=== PATIENT | male | born 1940 | race Caucasian/White ===

== ENCOUNTER 2016-03-01 15:48 | Inpatient (IN) | payer OTHER ==
[~2016-03-01] VITALS: Ht 170.2 cm; Wt 68.9 kg
[2016-03-01 17:10] LABS: Basophils # (auto) 0.1 uL; Basophils % (auto) 1.3 % (0.0-2.0); Eosinophils # (auto) 0.3 uL; Eosinophils % (auto) 3.4 % (0.0-7.0); Hematocrit 51.6 % (41.0-53.0); Hemoglobin 16.8 g/dL (13.5-17.5); Lymphocytes # (auto) 2.2 uL; Lymphocytes % (auto) 24.4 % (10.0-50.0); Mean Corpuscular Hemoglobin 30.6 pg (28.0-32.0); Mean Corpuscular Hgb Conc. 32.5 g/dL (32.0-36.0); Mean Corpuscular Volume 94.1 fL (80.0-100.0); Mean Platelet Volume 7.2 fL (7.4-10.4); Monocytes # (auto) 0.7 uL; Monocytes % (auto) 7.7 % (0.0-12.0); Neutrophils # (auto) 5.6 uL; Neutrophils % (auto) 63.2 % (37.0-80.0); Platelet Count (auto) 364 10^3/uL (140-450); Red Cell Distribution Width 14.4 % (11.6-16.0); White Blood Cell 8.8 10^3/uL (4.4-10.8)
[2016-03-01 17:19] LABS: Albumin 3.7 g/dL (3.4-5.0); BUN/Creatinine Ratio 12.4; Calcium 8.8 mg/dL (8.5-10.1); Potassium 4.2 mmol/L (3.5-5.1)
[2016-03-01 17:30] LABS: Bilirubin, Total 0.6 mg/dL (0.2-1.0); Total Protein 7.5 g/dL (6.4-8.2)
[2016-03-01] MEDS ORDERED: LEVOFLOXACIN 500MG 100 ML IV ONE (22:00)
[2016-03-01] MEDS ORDERED: IPRATROPIUM BROM 0.5 MG/2.5ML INH SOL NEB ONE (22:00)
[2016-03-01] MEDS ORDERED: ALBUTEROL SULF 2.5 MG/0.5ML(0.5%) NEB SOLN NEB ONE (22:00)
[2016-03-01] MEDS ORDERED: SODIUM CHLORIDE 0.9% 1,000 ML IV ONE (22:00)
[2016-03-01 22:34] LABS: INR 1.09 (0.9-1.15); Prothrombin Time 11.2 sec (9.37-12.3)
[2016-03-01 22:48] LABS: B-Type Natriuretic Peptide 109.02 pg/mL (0-100)
[2016-03-02] MEDS ORDERED: LORazepam 2MG/ML-1ML VIAL IV ONE (00:45)
[2016-03-02] MEDS ORDERED: NITROGLYCERIN 0.4 MG SL TAB SL PRN (00:45)
[2016-03-02] MEDS ORDERED: LORazepam 2MG/ML-1ML VIAL IV PRN (00:45)
[2016-03-02] MEDS ORDERED: LACTULOSE 20Gm/30ML SOLN PO PRN (00:45)
[2016-03-02] MEDS ORDERED: ONDANSETRON HCL 4 MG/2 ML VIAL IV PRN (00:45)
[2016-03-02] MEDS ORDERED: IOHEXOL 350 MG/ML 100ML IJ ONE (00:45)
[2016-03-02] MEDS ORDERED: ENOXAPARIN SOD 80 MG/0.8ML SYRINGE SC ONE (00:45)
[2016-03-02] MEDS ORDERED: MORPHINE SULF INJ 2 MG/ML SYRINGE 1ML IV PRN ×2 (00:45)
[2016-03-02] MEDS ORDERED: methylPREDNISolone SOD SUCC 125 MG/2 ML VL IV ONE (00:45)
[2016-03-02 01:44] VITALS: BP 123/88
[2016-03-02 01:56] VITALS: BP 123/88
[2016-03-02] MEDS: ALBUTEROL SULF 2.5 MG/0.5ML(0.5%) NEB SOLN NEB SCH ×4 (02:34→14:01)
[2016-03-02] MEDS: IPRATROPIUM BROM 0.5 MG/2.5ML INH SOL NEB SCH ×4 (02:34→14:01)
[2016-03-02 03:21] VITALS: BP 123/88
[2016-03-02] MEDS ORDERED: ATOR20TA50 PO (03:40)
[2016-03-02] MEDS ORDERED: FURO20TA3 PO (03:40)
[2016-03-02] MEDS ORDERED: ALBU1.257 NEB (03:40)
[2016-03-02] MEDS ORDERED: BUPR150T6 PO (03:40)
[2016-03-02] MEDS ORDERED: FLUT100I IN (03:40)
[2016-03-02] MEDS ORDERED: POTA10TA51 PO (03:40)
[2016-03-02 05:01] VITALS: BP 120/80
[2016-03-02] MEDS: SODIUM CHLOR 0.9% PF (SALINE LOCK) 10ML VIAL IV SCH ×2 (06:00→10:21)
[2016-03-02 09:00] VITALS: BP 141/93
[2016-03-02] MEDS ORDERED: buPROPion HCL 100 MG TAB PO SCH (10:00)
[2016-03-02] MEDS ORDERED: POTASSIUM CHLORIDE 8 MEQ TAB PO SCH (10:00)
[2016-03-02] MEDS ORDERED: FUROSEMIDE 20 MG/2 ML VIAL IV SCH (10:00)
[2016-03-02] MEDS ORDERED: ENOXAPARIN SOD 80 MG/0.8ML SYRINGE SC SCH (10:00)
[2016-03-02] MEDS ORDERED: METOPROLOL TARTRATE 25 MG TAB PO SCH (10:00)
[2016-03-02] MEDS ORDERED: PANTOPRAZOLE SODIUM 40 MG/10 ML VIAL IV SCH (10:00)
[2016-03-02] MEDS ORDERED: methylPREDNISolone SOD SUCC 125 MG/2 ML VL IV SCH (10:00)
[2016-03-02 13:00] VITALS: BP 121/82
[2016-03-02] MEDS ORDERED: guaiFENesin-DEXTROMETHORPHAN 5ML SYR PO PRN (13:30)
[2016-03-02] MEDS ORDERED: LEVO500T3 PO (13:45)
[2016-03-02] MEDS ORDERED: METH4PAK PO (13:45)
[2016-03-02] MEDS ORDERED: LEVOFLOXACIN 500MG 100 ML IV SCH (21:00)
[2016-03-02] MEDS ORDERED: methylPREDNISolone SOD SUCC 40 MG/ML VL IV SCH (22:00)
[2016-03-02] MEDS ORDERED: ATORVASTATIN 20 MG TAB PO SCH (22:00)
== END 2016-03-02 14:42 | disposition left against medical advice (07) | DRG 191 ==
LOC: ER 15:51 → TELE 15:52 → TELE-EAST 03-02 01:47
PROVIDERS: ADMIT Family Medicine; ATTEND Family Medicine
DX: J44.0 Chronic obstructive pulmonary disease with (acute) lower respiratory infection (principal); E87.1 Hypo-osmolality and hyponatremia; I10 Essential (primary) hypertension; J44.1 Chronic obstructive pulmonary disease with (acute) exacerbation; F41.9 Anxiety disorder, unspecified; F17.210 Nicotine dependence, cigarettes, uncomplicated; J20.9 Acute bronchitis, unspecified; F32.9 Major depressive disorder, single episode, unspecified; E78.5 Hyperlipidemia, unspecified
CPT/HCPCS: 36415; 71020; 71275; 80053; 83880; 84484; 85025; 85049; 85379; 85610; 85730; 87040; 87400; 93005; 93970; 94640; 96365; 96372; 96375; C9113; J1956

== ENCOUNTER 2018-10-23 10:24 | Emergency (ER) | payer OTHER ==
[~2018-10-23] VITALS: Ht 165.1 cm; Wt 81.6 kg
[~2018-10-23 10:24] MED LIST: ALBU1.257 NEB; ATOR20TA50 PO; BUPR150T6 PO; DOCU100C8 PO; FLUT100I IN; FURO20TA3 PO; LEVO500T21 PO; POTA10TA51 PO
[2018-10-23 11:51] LABS: Basophils # (auto) 0.1 uL; Basophils % (auto) 0.5 % (0.0-2.0); Eosinophils # (auto) 0.2 uL; Hematocrit 48.3 % (41.0-53.0); Hemoglobin 16.5 g/dL (13.5-17.5); Lymphocytes # (auto) 1.2 uL; Mean Corpuscular Hemoglobin 31.6 pg (28.0-32.0); Mean Corpuscular Hgb Conc. 34.2 g/dL (32.0-36.0); Mean Corpuscular Volume 92.4 fL (80.0-100.0); Monocytes # (auto) 0.6 uL; Monocytes % (auto) 5.6 % (0.0-12.0); Neutrophils # (auto) 9.2 uL; Neutrophils % (auto) 80.9 % (37.0-80.0); Nucleated Red Blood Cells % 0.1 %; Platelet Count (auto) 344 10^3/uL (140-450); Red Blood Cells 5.23 10^6/uL (4.5-5.90); Red Cell Distribution Width 14.3 % (11.8-14.3); White Blood Cell 11.3 10^3/uL (4.4-10.8)
[2018-10-23 12:14] LABS: Albumin 3.9 g/dL (3.4-5.0); Anion Gap 10 (5-15); Blood Urea Nitrogen 14 mg/dL (7-18); Calcium 9.4 mg/dL (8.5-10.1); Carbon Dioxide 27 mmol/L (21-32); Chloride 101 mmol/L (98-107); Glucose 95 mg/dL (74-106); Magnesium 2.6 mg/dL (1.6-2.6); Potassium 3.5 mmol/L (3.5-5.1); Sodium 138 mmol/L (136-145)
[2018-10-23 12:20] LABS: Alanine Aminotransferase 17 U/L (16-61); Alkaline Phosphatase 84 U/L (45-117); Aspartate Aminotransferase 18 U/L (15-37); GFR African American 85 mL/min; GFR Non-African American 70 mL/min
[2018-10-23 18:57] VITALS: BP 110/79
== END 2018-10-23 19:09 | disposition home or self-care (01) ==
LOC: ER 10:24
DX: R07.89 Other chest pain (principal); F41.9 Anxiety disorder, unspecified; J44.9 Chronic obstructive pulmonary disease, unspecified; F32.9 Major depressive disorder, single episode, unspecified; E78.5 Hyperlipidemia, unspecified; I10 Essential (primary) hypertension; Z87.891 Personal history of nicotine dependence; Z88.0 Allergy status to penicillin; Z79.899 Other long term (current) drug therapy
CPT/HCPCS: 36415; 71045; 80053; 83735; 83880; 84484; 85025; 93005

== ENCOUNTER 2021-05-22 13:36 | Inpatient (IN) | payer OTHER ==
[~2021-05-22] VITALS: Ht 170.2 cm; Wt 66.5 kg
[~2021-05-22 13:36] MED LIST changes: +BUPR150T18 PO; -BUPR150T6 PO; +DOCU100C10 PO; -DOCU100C8 PO; -LEVO500T21 PO; +LEVO500T31 PO
[2021-05-22] MEDS ORDERED: methylPREDNISolone SOD SUCC 125 MG/2 ML VL IV ONE (14:15)
[2021-05-22 14:56] LABS: Basophils # (auto) 0 10 ^3/uL (0-0.2); Basophils % (auto) 0.2 % (0.0-2.0); Eosinophils # (auto) 0.1 10 ^3/uL (0-0.8); Eosinophils % (auto) 0.3 % (0.0-7.0); Hematocrit 39.5 % (41.0-53.0); Hemoglobin 13.2 g/dL (13.5-17.5); Lymphocytes # (auto) 0.3 10 ^3/uL (0.4-5.4); Lymphocytes % (auto) 1.6 % (10.0-50.0); Mean Corpuscular Hemoglobin 29.3 pg (28.0-32.0); Mean Corpuscular Hgb Conc. 33.4 g/dL (32.0-36.0); Mean Corpuscular Volume 87.6 fL (80.0-100.0); Monocytes # (auto) 0.7 10 ^3/uL (0-1.3); Monocytes % (auto) 3.4 % (0.0-12.0); Neutrophils # (auto) 18.7 10 ^3/uL (1.6-8.6); Neutrophils % (auto) 94.5 % (37.0-80.0); Nucleated Red Blood Cells % 0.1 %; Red Blood Cells 4.51 10^6/uL (4.5-5.90); Red Cell Distribution Width 14.3 % (11.8-14.3); White Blood Cell 19.7 10^3/uL (4.4-10.8)
[2021-05-22 15:19] LABS: Albumin 2.6 g/dL (3.4-5.0)
[2021-05-22 15:21] LABS: BUN/Creatinine Ratio 17.6
[2021-05-22 15:26] LABS: Total Protein 7.6 g/dL (6.4-8.2)
[2021-05-22] MEDS ORDERED: IOHEXOL 350 MG/ML 100ML IJ ONE (16:06)
[2021-05-22] MEDS ORDERED: levoFLOXacin 500MG 100 ML IV ONE (17:00)
[2021-05-22] MEDS ORDERED: MORPHINE SULFATE INJECTION 2 MG/ML SYRG IV ONE (18:30)
[2021-05-22] MEDS ORDERED: IPRATROPIUM BROM 0.5 MG/2.5ML INH SOL NEB PRN (21:00)
[2021-05-22] MEDS ORDERED: ALBUTEROL SULF 2.5 MG/0.5ML(0.5%) NEB SOLN NEB PRN (21:00)
[2021-05-22] MEDS ORDERED: NITROGLYCERIN 0.4 MG SL TAB SL PRN (21:00)
[2021-05-22] MEDS ORDERED: ONDANSETRON HCL 4 MG/2 ML VIAL IV PRN (21:00)
[2021-05-22] MEDS ORDERED: HYDROcodone-ACET 5/325MG TAB PO PRN (21:00)
[2021-05-22] MEDS ORDERED: TEMAZEPAM 15 MG CAP PO PRN (21:00)
[2021-05-22] MEDS ORDERED: ACETAMINOPHEN 325 MG TAB PO PRN (21:00)
[2021-05-22] MEDS ORDERED: MORPHINE SULFATE INJECTION 2 MG/ML SYRG IV PRN (21:00)
[2021-05-22] MEDS: METOPROLOL TARTRATE 25 MG TAB PO SCH (22:00)
[2021-05-22 22:12] VITALS: BP 102/69
[2021-05-22] MEDS: ATORVASTATIN 20 MG TAB PO SCH (22:20)
[2021-05-22] MEDS: methylPREDNISolone SOD SUCC 40 MG/ML VL IV SCH (22:20)
[2021-05-22 23:32] LABS: Urine Bacteria FEW /hpf (None Seen); Urine Blood TRACE /uL (Negative); Urine Mucus FEW (None Seen); Urine WBC 1 /hpf (0 - 3)
[2021-05-22 23:35] LABS: Urine Specific Gravity > 1.055 (1.001-1.035)
[2021-05-23] MEDS ORDERED: LORA0.5T20 PO (04:28)
[2021-05-23 05:00] VITALS: BP 102/70
[2021-05-23 05:45] LABS: Basophils # (auto) 0 10 ^3/uL (0-0.2); Eosinophils # (auto) 0 10 ^3/uL (0-0.8); Hematocrit 35.7 % (41.0-53.0); Hemoglobin 12.1 g/dL (13.5-17.5); Lymphocytes # (auto) 0.6 10 ^3/uL (0.4-5.4); Mean Corpuscular Hemoglobin 29.6 pg (28.0-32.0); Mean Corpuscular Hgb Conc. 33.8 g/dL (32.0-36.0); Mean Corpuscular Volume 87.5 fL (80.0-100.0); Monocytes # (auto) 0.4 10 ^3/uL (0-1.3); Monocytes % (auto) 2.1 % (0.0-12.0); Neutrophils # (auto) 18.8 10 ^3/uL (1.6-8.6); Neutrophils % (auto) 94.9 % (37.0-80.0); Red Blood Cells 4.09 10^6/uL (4.5-5.90); Red Cell Distribution Width 14.6 % (11.8-14.3); White Blood Cell 19.8 10^3/uL (4.4-10.8)
[2021-05-23 05:59] LABS: Albumin 2.2 g/dL (3.4-5.0); BUN/Creatinine Ratio 23.5; Calcium 8.9 mg/dL (8.5-10.1); Potassium 4.3 mmol/L (3.5-5.1)
[2021-05-23 06:01] LABS: Bilirubin, Total 0.6 mg/dL (0.2-1.0); Total Protein 6.9 g/dL (6.4-8.2)
[2021-05-23 09:00] VITALS: BP 97/61
[2021-05-23] MEDS: methylPREDNISolone SOD SUCC 40 MG/ML VL IV SCH ×2 (09:54→18:22)
[2021-05-23] MEDS: PANTOPRAZOLE 40 MG TAB PO SCH (09:55)
[2021-05-23] MEDS: buPROPion HCL 75 MG TAB PO SCH (09:55)
[2021-05-23] MEDS: ENOXAPARIN SOD 40 MG/0.4 ML SYRINGE SC SCH (09:55)
[2021-05-23] MEDS: METOPROLOL TARTRATE 25 MG TAB PO SCH ×2 (09:55→22:00)
[2021-05-23] MEDS ORDERED: FUROSEMIDE 40 MG TAB PO SCH (10:00)
[2021-05-23] MEDS ORDERED: ASPirin 81 mg TAB PO SCH (10:00)
[2021-05-23] MEDS ORDERED: GENTAMICIN SULF 0.3% OPTH(EYE) OINT 3.5GM EACHEYE ONE (12:30)
[2021-05-23] MEDS: ALBUTEROL SULF 2.5 MG/0.5ML(0.5%) NEB SOLN NEB SCH ×2 (12:49→19:48)
[2021-05-23] MEDS: IPRATROPIUM BROM 0.5 MG/2.5ML INH SOL NEB SCH ×2 (12:49→19:49)
[2021-05-23 13:00] VITALS: BP_SYST 102; BP_SYST 105; BP_SYST 98; BP_DIAS 66; BP_DIAS 70; BP_DIAS 78
[2021-05-23] MEDS: IBUPROFEN 400 MG TAB PO SCH ×2 (13:37→22:56)
[2021-05-23] MEDS: ALPRAZolam 0.25 MG TAB PO PRN (13:37)
[2021-05-23 17:00] VITALS: BP 90/54
[2021-05-23] MEDS ORDERED: levoFLOXacin 500MG 100 ML IV ONE (18:00)
[2021-05-23] MEDS: FUROSEMIDE 20 MG/2 ML VIAL IV SCH (18:15)
[2021-05-23 19:35] VITALS: BP 98/65
[2021-05-23 21:55] VITALS: BP 98/65
[2021-05-23] MEDS: GENTAMICIN SULF 0.3% OPTH(EYE) OINT 3.5GM EACHEYE SCH (22:53)
[2021-05-23] MEDS: POTASSIUM CHL 10 Meq TABLET PO SCH (22:54)
[2021-05-23] MEDS: ATORVASTATIN 20 MG TAB PO SCH (22:54)
[2021-05-24] MEDS: ALBUTEROL SULF 2.5 MG/0.5ML(0.5%) NEB SOLN NEB SCH ×4 (00:05→18:27)
[2021-05-24] MEDS: IPRATROPIUM BROM 0.5 MG/2.5ML INH SOL NEB SCH ×4 (00:05→18:27)
[2021-05-24] MEDS: methylPREDNISolone SOD SUCC 40 MG/ML VL IV SCH ×2 (01:30→10:10)
[2021-05-24 04:55] VITALS: BP 101/62
[2021-05-24 05:22] LABS: Basophils # (auto) 0 10 ^3/uL (0-0.2); Basophils % (auto) 0.1 % (0.0-2.0); Eosinophils # (auto) 0 10 ^3/uL (0-0.8); Hematocrit 32.8 % (41.0-53.0); Hemoglobin 11.3 g/dL (13.5-17.5); Lymphocytes # (auto) 0.4 10 ^3/uL (0.4-5.4); Lymphocytes % (auto) 2.4 % (10.0-50.0); Mean Corpuscular Hemoglobin 29.9 pg (28.0-32.0); Mean Corpuscular Hgb Conc. 34.4 g/dL (32.0-36.0); Mean Corpuscular Volume 86.9 fL (80.0-100.0); Monocytes # (auto) 0.4 10 ^3/uL (0-1.3); Monocytes % (auto) 2.4 % (0.0-12.0); Neutrophils # (auto) 17.6 10 ^3/uL (1.6-8.6); Neutrophils % (auto) 95.1 % (37.0-80.0); Red Blood Cells 3.77 10^6/uL (4.5-5.90); Red Cell Distribution Width 14.4 % (11.8-14.3); White Blood Cell 18.5 10^3/uL (4.4-10.8)
[2021-05-24 05:35] LABS: Potassium 4.2 mmol/L (3.5-5.1)
[2021-05-24 05:46] LABS: BUN/Creatinine Ratio 29.7; Calcium 9.1 mg/dL (8.5-10.1)
[2021-05-24] MEDS: FUROSEMIDE 20 MG/2 ML VIAL IV SCH (05:59)
[2021-05-24] MEDS: IBUPROFEN 400 MG TAB PO SCH ×2 (05:59→13:30)
[2021-05-24 09:00] VITALS: BP 97/58
[2021-05-24] MEDS: ENOXAPARIN SOD 40 MG/0.4 ML SYRINGE SC SCH (09:50)
[2021-05-24] MEDS: buPROPion HCL 75 MG TAB PO SCH (09:51)
[2021-05-24] MEDS: POTASSIUM CHL 10 Meq TABLET PO SCH (09:51)
[2021-05-24] MEDS: PANTOPRAZOLE 40 MG TAB PO SCH (09:51)
[2021-05-24] MEDS: METOPROLOL TARTRATE 25 MG TAB PO SCH (09:51)
[2021-05-24] MEDS: GENTAMICIN SULF 0.3% OPTH(EYE) OINT 3.5GM EACHEYE SCH (09:54)
[2021-05-24 13:00] VITALS: BP 97/61
[2021-05-24] MEDS: ALPRAZolam 0.25 MG TAB PO PRN (13:17)
[2021-05-24] MEDS ORDERED: PRED20TA2 PO (17:09)
[2021-05-24] MEDS ORDERED: DOXY-286 PO (17:09)
[2021-05-24] MEDS ORDERED: levoFLOXacin 500MG 100 ML IV SCH (18:00)
[2021-05-24 18:31] VITALS: BP 98/58
[2021-05-24] MEDS ORDERED: methylPREDNISolone SOD SUCC 40 MG/ML VL IV SCH (22:00)
== END 2021-05-24 19:40 | disposition home or self-care (01) | DRG 193 ==
LOC: ER 13:36 → TELE 20:50 → TELE-EAST 23:05
PROVIDERS: ADMIT Nurse Practitioner; ATTEND Hospitalist
DX: J18.9 Pneumonia, unspecified organism (principal); J96.20 Acute and chronic respiratory failure, unspecified whether with hypoxia or hypercapnia; J44.1 Chronic obstructive pulmonary disease with (acute) exacerbation; J44.0 Chronic obstructive pulmonary disease with (acute) lower respiratory infection; J20.9 Acute bronchitis, unspecified; M19.90 Unspecified osteoarthritis, unspecified site; E78.5 Hyperlipidemia, unspecified; I11.0 Hypertensive heart disease with heart failure; I50.9 Heart failure, unspecified; Z20.822 Contact with and (suspected) exposure to COVID-19; F32.A Depression, unspecified; F41.9 Anxiety disorder, unspecified; R94.31 Abnormal electrocardiogram [ECG] [EKG]; Z82.3 Family history of stroke; Z87.891 Personal history of nicotine dependence; Z88.0 Allergy status to penicillin
CPT/HCPCS: 36415; 71045; 71275; 76604; 80048; 80053; 81001; 83605; 83735; 83880; 84484; 85025; 85379; 87040; 87070; 87205; 93005; 93306; 93970; 94640; 96365; 96375; 97163; 99291; G0378; J1956